=== PATIENT | female | born 1970 | race Two or more races ===

== ENCOUNTER → 2018-10-29 11:50 | Outpatient (CLI) | payer BC, SELFPAY | PROVIDERS: Visit Provider Obstetrics & Gynecology | DX: Z12.4 Encounter for screening for malignant neoplasm of cervix (principal) ==

== ENCOUNTER → 2021-02-15 13:17 | Outpatient (CLI) | payer BC, SELFPAY ==
--- NOTE | 2021-02-15 12:10 | CER_PTH ---
PATIENT: TOBI GLORIA LOC: [facility] U#:[id number] AGE/SX: 54/F ROOM: RE02/15/[address]: Dr. Margarita Lopez, : 1970 BED: DIS: SPEC #: [id number] RECD: 02/15/21 13:56 STATUS: SERA NABIL #: [id number] REAL: 02/15/21 12:[address]: Margarita Lopez DEPT: SURGICAL PATHOLOGY RECD BY: Cathryn Blackman Tissues: Uterine cervix, NOS Procedures: Surgery Specimen Level IV HEADER OPERATION: Polypectomy PRE-OP DIAGNOSIS: Cervical polyp TISSUE SUBMITTED: Cervical polyp MICROSCOPIC DIAGNOSIS Cervical polyp, polypectomy: Fragments of inflamed benign endocervical polyp. AMBROSIO:rob 02/17/2021 MICROSCOPIC DESCRIPTION Slides are reviewed. GROSS DESCRIPTION Received in fixative is one container labeled with the patient's name and designated cervical polyp. The specimen consists of two polypoid pieces of concepcion-pink soft tissue measuring 0.7 x 0.5 x 0.3 cm and 0.6 x 0.5 x 0.3 cm. The entire specimen is submitted in one cassette. / SJ:rg 02/16/2021 :5 CPT: [id number]
== END ==
PROVIDERS: Visit Provider Student in an Organized Health Care Education/Training Program
DX: N84.1 Polyp of cervix uteri (principal)
CPT/HCPCS: 88305

== ENCOUNTER → 2022-02-16 | Outpatient (CLI) | payer BC, SELFPAY ==
[2022-02-22 20:56] LABS: HPV APTIMA, High Risk Negative (Negative)
== END | disposition home or self-care (01) ==
LOC: LABSPEC 10:39
PROVIDERS: Visit Provider Student in an Organized Health Care Education/Training Program
DX: Z12.4 Encounter for screening for malignant neoplasm of cervix (principal)
CPT/HCPCS: 87624; 88175; G0145

== ENCOUNTER → 2022-10-20 | Outpatient (CLI) | payer BC, SELFPAY ==
[2022-10-20 11:13] LABS: Absolute Lymphocyte Count 1.36 X10^3/uL (0.83-4.51); Absolute Neutrophil Count 2.9 X10^3/uL (2.0-7.7); Basophil# 0.07 X10^3/uL; Basophil% 1.4 % (0-1); Hematocrit 37.3 % (37-47); Hemoglobin 12.9 g/dL (12.0-15.0); Lymphocyte # 1.36 X10^3/ul (0.83-4.51); Lymphocyte % 27.4 % (19-41); Mean Corp Hgb Conc 34.6 g/dL (32-36); Mean Corpuscular Hgb 30.2 pg (27.0-32.0); Mean Corpuscular Volume 87.4 fL (81-99); Mean Platelet Vol. 9.3 fl (6.2-12.0); Monocyte# 0.49 X10^3/uL; Monocyte% 9.9 % (0-10); NRBC Flagged by Analyzer 0 % (0-5); Neutrophil # 2.93 X10^3/uL (2.7-7.7); Neutrophil % 59.1 % (47-70); Platelet Count 364 K/mm3 (150-450); RBC Distribution Width CV 12.4 % (11.6-14.6); RBC Distribution Width SD 39.7 fl (35.1-43.9); Red Blood Count 4.27 M/mm3 (4.2-5.4)
[2022-10-20 12:20] LABS: Estradiol 108.5 pg/mL; Follicle Stimulating Hormone 31.9 mIU/mL; Luteinizing Hormone 24.9 mIU/mL; Prolactin 4.5 ng/mL
== END | disposition home or self-care (01) ==
LOC: WOBLAB 10:36
PROVIDERS: Visit Provider Nurse Practitioner Women's Health
DX: N93.9 Abnormal uterine and vaginal bleeding, unspecified (principal)
CPT/HCPCS: 36415; 82670; 83001; 83002; 84146; 85025

== ENCOUNTER → 2022-10-26 | Outpatient (CLI) | payer BC, SELFPAY ==
--- NOTE | 2022-10-26 10:07 | EMB_PTH ---
PATIENT: TOBI GLORIA LOC: [facility] U#:[id number] AGE/SX: 52/F ROOM: RE10/26/[address]: Dr. Margarita Lopez, : 1970 BED: DIS: 10/26/2022 SPEC #: [id number] RECD: 10/26/22 13:06 STATUS: SERA NABIL #: [id number] REAL: 10/26/22 10:[address]: Margarita Lopez DEPT: SURGICAL PATHOLOGY RECD BY: Kofi Shelby Tissues: Endometrium, NOS Procedures: Surgery Specimen Level IV HEADER OPERATION: Endometrial biopsy PRE-OP DIAGNOSIS: N93.9 TISSUE SUBMITTED: Endometrial biopsy MICROSCOPIC DIAGNOSIS Endometrial biopsy: Simple endometrial hyperplasia without atypia. AMBROSIO:rob 10/27/2022 COMMENT Case has been reviewed in consultation with Dr. Avitia who concurs with the above diagnosis. IDC:AM MICROSCOPIC DESCRIPTION Slides are reviewed. GROSS DESCRIPTION Received in fixative is one container labeled with the patient's name and designated Endometrial biopsy. The specimen consists of multiple fragments of hemorrhagic mucoid tissue that in aggregate measure 2.0 x 2.0 x 0.3 cm. The specimen is totally submitted in one cassette. / SJ:rg 10/26/2022 TC:5 [facility]: [id number]
== END | disposition home or self-care (01) ==
LOC: LABSPEC 10:12
PROVIDERS: Visit Provider Student in an Organized Health Care Education/Training Program
DX: N93.9 Abnormal uterine and vaginal bleeding, unspecified (principal)
CPT/HCPCS: 88305